=== PATIENT | female | born 1940 | race Caucasian/White ===

== ENCOUNTER → 2016-10-08 | Outpatient (CLI) | payer MEDICARE | END | disposition home or self-care (01) | LOC: CFH 10:56 | PROVIDERS: ATTEND Internal Medicine | DX: M19.032 Primary osteoarthritis, left wrist (principal); M25.832 Other specified joint disorders, left wrist ==

== ENCOUNTER 2017-06-12 23:22 | Inpatient (IN) | payer MEDICARE ==
[~2017-06-12] VITALS: Ht 160 cm; Wt 63.6 kg
[2017-06-12] MEDS ORDERED: SODIUM CHLORIDE FLUSH 10ML SYR IVF ONE (23:30)
[2017-06-12] MEDS ORDERED: MORPHINE SULFATE 4 MG/ML, 1ML IVPush PRN (23:30)
[2017-06-12] MEDS ORDERED: SODIUM CHLORIDE 0.9% 1,000ML IVBOLUS ONE (23:30)
[2017-06-12] MEDS ORDERED: ONDANSETRON 2MG/ML, 2ML IVPush ONE (23:30)
[2017-06-12] MEDS ORDERED: HTN (23:41)
[2017-06-12] MEDS ORDERED: HIGH CHOLESTROL (23:41)
[2017-06-12] MEDS ORDERED: ONDANSETRON 2MG/ML, 2ML ONE (23:44)
[2017-06-12 23:50] LABS: HEMATOCRIT 36.9 % (34.6-47.8); HEMOGLOBIN 12.3 g/dL (11.7-16.4); WHITE BLOOD COUNT 10.6 x10^3/uL (3.4-10)
[2017-06-13 00:01] LABS: ASPARTATE AMINO TRANSFERASE 26 U/L (15-37); BLOOD UREA NITROGEN 21 mg/dL (7-18)
[2017-06-13 00:09] LABS: IS PT STATUS REG ER OR PRE ER? YES
[2017-06-13] MEDS ORDERED: OMNIPAQUE 350 MG/ML, 100ML BOTTLE ONE (00:40)
[2017-06-13] MEDS ORDERED: METRONIDAZOLE PMX 500MG/100ML 100 ML IV ONE (01:00)
[2017-06-13] MEDS ORDERED: SODIUM CHLORIDE 0.9% 1,000ML IVBOLUS ONE (01:00)
[2017-06-13] MEDS ORDERED: LEVOFLOXACIN/PMX 750MG/150ML 150 ML IVPB ONE (01:00)
[2017-06-13] MEDS ORDERED: METRONIDAZOLE PMX 500MG/100ML 100 ML ONE (01:02)
[2017-06-13] MEDS ORDERED: LEVOFLOXACIN/PMX 750MG/150ML 150 ML ONE (01:03)
[2017-06-13 02:24] VITALS: BP 149/72
[2017-06-13 07:32] VITALS: BP 125/65
[2017-06-13] MEDS ORDERED: ONDANSETRON 2MG/ML, 2ML IVPush PRN (08:30)
[2017-06-13] MEDS: LEVOFLOXACIN/PMX 750MG/150ML 150 ML IV SCH (08:30)
[2017-06-13] MEDS ORDERED: POLYETHYLENE GLYCOL 17 GM PACKET PO PRN (08:30)
[2017-06-13] MEDS ORDERED: ACETAMINOPHEN 325 MG TABLET PO PRN (08:30)
[2017-06-13] MEDS ORDERED: HYDROcodone/APAP 5/325 TABLET PO PRN (08:30)
[2017-06-13] MEDS ORDERED: DOCUSATE 100 MG CAPSULE PO PRN (08:30)
[2017-06-13] MEDS: METRONIDAZOLE PMX 500MG/100ML 100 ML IV SCH ×2 (09:06→17:13)
[2017-06-13] MEDS: NS + 20MEQ KCL 1,000 ML IV SCH ×2 (09:06→22:32)
[2017-06-13 12:36] VITALS: BP 124/65
[2017-06-13 21:04] VITALS: BP 117/55
[2017-06-14] MEDS: METRONIDAZOLE PMX 500MG/100ML 100 ML IV SCH ×2 (00:19→09:13)
[2017-06-14] MEDS: LEVOFLOXACIN/PMX 750MG/150ML 150 ML IV SCH (01:07)
[2017-06-14 01:11] VITALS: BP 107/55
[2017-06-14 05:25] LABS: HEMATOCRIT 31.6 % (34.6-47.8); HEMOGLOBIN 10.4 g/dL (11.7-16.4); WHITE BLOOD COUNT 7.4 x10^3/uL (3.4-10)
[2017-06-14 05:41] LABS: BLOOD UREA NITROGEN 11 mg/dL (7-18)
[2017-06-14 07:42] VITALS: BP 136/75
[2017-06-14] MEDS ORDERED: METR500T8 PO (13:15)
[2017-06-14] MEDS ORDERED: LEVO500T8 PO (13:15)
[2017-06-14 14:13] VITALS: BP 158/68
== END 2017-06-14 16:15 | disposition home or self-care (01) | DRG 391 ==
LOC: ED 23:59 → EDIP 06-13 00:57 → 3NE 06-13 02:00
PROVIDERS: ADMIT Surgery; ATTEND Family Medicine
PROC: 0T9B70Z Drainage of Bladder with Drainage Device, Via Natural or Artificial Opening (ICD-10-PCS; principal; 2017-06-12)
DX: A09 Infectious gastroenteritis and colitis, unspecified (principal); J15.9 Unspecified bacterial pneumonia; E86.0 Dehydration; N30.90 Cystitis, unspecified without hematuria; E78.5 Hyperlipidemia, unspecified; E87.6 Hypokalemia; I10 Essential (primary) hypertension
CPT/HCPCS: 36415; 70450; 71010; 74177; 80048; 80053; 81001; 83690; 83735; 84484; 85025; 85610; 85730; 86900; 87040; 87086; 87324; 89055; 93005; 96361; 96365; 96368; 96375; J1956; J2405; J3480; Q9967; J7030

== ENCOUNTER → 2017-07-06 | Outpatient (CLI) | payer MEDICARE ==
[~2017-07-06] MED LIST: HIGH CHOLESTROL; HTN; LEVO500T8 PO; METR500T8 PO
== END | disposition home or self-care (01) ==
LOC: CFH 10:01
PROVIDERS: ATTEND Family Medicine
DX: J18.8 Other pneumonia, unspecified organism (principal); R93.8 Abnormal findings on diagnostic imaging of other specified body structures
CPT/HCPCS: 71046

== ENCOUNTER → 2019-06-26 | Outpatient (CLI) | payer MEDICARE ==
[~2019-06-26] MED LIST changes: +ACID1TAB7 PO; +AMLO5TAB10 PO; +ANTI1CAP PO; +ASCO-96 PO; +CALC-666 PO; +CHOL200024 PO; +ENAL5TAB PO; +GADOTERATE 10 MMOL/20 ML VIAL ONE; +LISI5TAB7 PO; +METR-90 PO; -METR500T8 PO; +PRAV80TA2 PO
== END | disposition home or self-care (01) ==
LOC: CFH 08:23
PROVIDERS: ATTEND Family Medicine
DX: N28.1 Cyst of kidney, acquired (principal); D18.09 Hemangioma of other sites; K85.90 Acute pancreatitis without necrosis or infection, unspecified
CPT/HCPCS: 74183; A9575